=== PATIENT | female | born 2005 | race Caucasian/White ===

== ENCOUNTER 2023-11-03 15:08 | Emergency (ER) | payer BC ==
[~2023-11-03] VITALS: Ht 160 cm; Wt 61.4 kg
[2023-11-03] MEDS ORDERED: AMPH1CAP14 (16:51)
[2023-11-03] MEDS ORDERED: LAMO150T3 (16:51)
[2023-11-03] MEDS ORDERED: AMPH1CAP15 PO (16:51)
[2023-11-03] MEDS ORDERED: LEXA1TAB2 PO (16:51)
[2023-11-03] MEDS ORDERED: SPIR100T3 (16:51)
[2023-11-03] MEDS: predniSONE 20 MG TAB PO ONE (20:06)
[2023-11-03] MEDS: methocarbamoL 500 MG TAB PO ONE (20:06)
[2023-11-03] MEDS: KETOROLAC 60MG 2ML VIAL IM ONE (20:06)
[2023-11-03] MEDS: IBUPROFEN 600MG TAB PO ONE (20:28)
[2023-11-03] MEDS ORDERED: METH-1164 PO (20:37)
[2023-11-03] MEDS ORDERED: PRED10TA2 PO (20:37)
[2023-11-03] MEDS ORDERED: IBUP-1022 PO (20:37)
[2023-11-03] MEDS ORDERED: PRED20TA PO (20:37)
[2023-11-03 20:55] VITALS: BP 131/72; TEMP 97.9; O2SAT 99
== END 2023-11-03 21:18 | disposition home or self-care (01) ==
LOC: M ED 15:08
DX: M54.12 Radiculopathy, cervical region (principal); Z88.1 Allergy status to other antibiotic agents; Z88.8 Allergy status to other drugs, medicaments and biological substances; Z79.1 Long term (current) use of non-steroidal anti-inflammatories (NSAID); Z79.52 Long term (current) use of systemic steroids; Z79.899 Other long term (current) drug therapy
CPT/HCPCS: 72125; 99283; J7512